=== PATIENT | male | born 1990 | race Caucasian/White ===

== ENCOUNTER 2017-11-30 19:41 | Observation (INO) | payer BC ==
[~2017-11-30] VITALS: Ht 172.7 cm; Wt 88.5 kg
[2017-11-30 20:11] LABS: BASOPHILS # (AUTO) 0.12 x10^3/uL (0-0.1); BASOPHILS % (AUTO) 1 % (0-1); EOSINOPHILS # (AUTO) 0.03 x10^3/uL (0-0.4); EOSINOPHILS % (AUTO) 0 % (1-7); LYMPHOCYTES # (AUTO) 3.17 x10^3/uL (1-3.4); LYMPHOCYTES % (AUTO) 24 % (22-44); MD NO; MEAN CORPUSCULAR HEMOGLOBIN 30.1 pg (27.5-34.5); MEAN CORPUSCULAR HGB CONC 34.2 g/dL (33.2-36.2); MEAN CORPUSCULAR VOLUME 88.2 fL (81-97); MEAN PLATELET VOLUME 7.6 fL (7.4-10.4); MONOCYTES # (AUTO) 0.84 x10^3/uL (0.2-0.8); MONOCYTES % (AUTO) 6 % (2-9); NEUTROPHILS # (AUTO) 9.22 x10^3/uL (1.8-6.8); NEUTROPHILS % (AUTO) 69 % (42-75); PLATELET COUNT 315 x10^3/uL (130-400); RED BLOOD COUNT 5.53 x10^6/uL (4.38-5.82); RED CELL DISTRIBUTION WIDTH 12.9 % (9.4-14.8)
[2017-11-30 20:29] LABS: ALBUMIN 4.5 g/dL (3.4-5.0); ANION GAP 9 mmol/L (5-15); CALCIUM 9.1 mg/dL (8.5-10.1); CHLORIDE 107 mmol/L (98-107)
[2017-11-30 20:30] LABS: CREATININE 0.97 mg/dL (0.7-1.3); SALICYLATE LEVEL < 1.7 mg/dL (2.8-20.0)
[2017-11-30 20:32] LABS: ACETAMINOPHEN < 2 mcg/mL (10-30)
[2017-11-30 20:59] LABS: AMPHETAMINE SCREEN, URINE Negative (Negative); BARBITURATE SCREEN, URINE Negative (Negative); BENZODIAZEPINE SCREEN, URINE Negative (Negative); CANNABINOID SCREEN, URINE Negative (Negative); COCAINE SCREEN, URINE Negative (Negative); METHADONE SCREEN, URINE Negative (Negative); OPIATE SCREEN, URINE Negative (Negative)
[2017-12-01] MEDS ORDERED: ACETAMINOPHEN 325 MG TABLET PO PRN (01:30)
[2017-12-01] MEDS ORDERED: DIPHENHYDRAMINE 50 MG CAPSULE PO PRN (01:30)
[2017-12-01] MEDS ORDERED: NICOTINE 14MG/24 HR PATCH.TD24 TD SCH (01:30)
[2017-12-01] MEDS ORDERED: NICOTINE 14MG/24 HR PATCH.TD24 ONE (01:36)
[2017-12-01] MEDS ORDERED: DIPHENHYDRAMINE 25 MG CAPSULE ONE (01:44)
[2017-12-01] MEDS ORDERED: DIPHENHYDRAMINE 50 MG CAPSULE ONE (01:51)
[2017-12-01] MEDS: LORazepam 1MG TABLET PO PRN ×2 (17:26→20:54)
[2017-12-01 17:35] VITALS: BP 157/90
[2017-12-01 20:31] VITALS: BP 131/74
[2017-12-02 07:34] VITALS: BP 120/81
[2017-12-02] MEDS: NICOTINE 14MG/24 HR PATCH.TD24 TD SCH (08:08)
[2017-12-02] MEDS: LORazepam 1MG TABLET PO PRN ×3 (08:18→15:38)
[2017-12-02] MEDS: ONDANSETRON ODT 4 MG PO PRN ×2 (09:37→15:41)
[2017-12-02 10:55] VITALS: BP 149/77
[2017-12-02 14:00] VITALS: BP 108/61
[2017-12-02 15:36] VITALS: BP 138/89
[2017-12-02 20:06] VITALS: BP 115/66
[2017-12-03 07:41] VITALS: BP 110/73
[2017-12-03] MEDS: NICOTINE 14MG/24 HR PATCH.TD24 TD SCH (08:57)
== END 2017-12-03 14:03 ==
LOC: ED 12-01 01:04 → SUATTDRO 12-01 01:09 → INTOOBSV 12-01 01:10 → EDIP 12-01 01:10 → 2N 12-01 17:21
PROVIDERS: ADMIT Family Medicine; ATTEND Family Medicine
DX: R45.851 Suicidal ideations (principal); F33.2 Major depressive disorder, recurrent severe without psychotic features; F10.10 Alcohol abuse, uncomplicated; J45.909 Unspecified asthma, uncomplicated; F17.200 Nicotine dependence, unspecified, uncomplicated
CPT/HCPCS: 36415; 80048; 80307; 80329; 82040; 85025; 99285; G0378; Q0162; G0480

== ENCOUNTER 2020-10-04 12:07 | Emergency (ER) | payer MEDICAID, OTHER ==
[~2020-10-04] VITALS: Ht 175.3 cm; Wt 70.0 kg
[2020-10-04] MEDS ORDERED: LIDOCAINE-MPF 1%, 5ML ONE (12:46)
--- NOTE | 2020-10-04 12:48 | NUR ---
ERP back to bedside for I&D.
[2020-10-04] MEDS ORDERED: CLINDAMYCIN PMX 900MG/50ML 50 ML IVPB ONE (13:00)
[2020-10-04] MEDS ORDERED: SODIUM CHLORIDE FLUSH 10ML SYR IVF ONE (13:00)
[2020-10-04] MEDS ORDERED: SODIUM CHLORIDE 0.9% 1,000 ML IV ONE (13:00)
[2020-10-04] MEDS ORDERED: LIDOCAINE-MPF 1%, 5ML INFIL ONE (13:00)
[2020-10-04 13:25] LABS: HCT (SEDRATE) 46.4 % (39.2-51.8)
[2020-10-04 13:28] LABS: BASOPHILS % (AUTO) 0 % (0-1); EOSINOPHILS % (AUTO) 0 % (1-7); LYMPHOCYTES % (AUTO) 23 % (22-44); MEAN CORPUSCULAR HEMOGLOBIN 29.8 pg (27.5-34.5); MEAN CORPUSCULAR HGB CONC 33.3 g/dL (33.2-36.2); MEAN PLATELET VOLUME 7.3 fL (7.4-10.4); MONOCYTES % (AUTO) 5 % (2-9); NEUTROPHILS % (AUTO) 71 % (42-75); PLATELET COUNT 325 x10^3/uL (130-400); RED BLOOD COUNT 5.19 x10^6/uL (4.38-5.82); RED CELL DISTRIBUTION WIDTH 12.8 % (9.4-14.8)
[2020-10-04] MEDS ORDERED: CLINDAMYCIN PMX 900MG/50ML 50 ML ONE (13:30)
[2020-10-04 13:34] LABS: ALANINE AMINOTRANSFERASE 40 U/L (12-78); ANION GAP 5 mmol/L (5-15); C-REACTIVE PROTEIN, QUANT 0.03 mg/dL (0.02-0.49); CALCIUM 9.3 mg/dL (8.5-10.1); CHLORIDE 104 mmol/L (98-107); CREATININE 1.01 mg/dL (0.7-1.3)
[2020-10-04 13:36] LABS: ALKALINE PHOSPHATASE 87 U/L (45-117); BILIRUBIN,TOTAL 0.5 mg/dL (0.2-1.0); TOTAL PROTEIN 7.9 g/dL (6.4-8.2)
--- NOTE | 2020-10-04 13:42 | NUR ---
This RN at bedside when BC were drawn. ABX hung after.
[2020-10-04 13:45] LABS: MD NO
[2020-10-04 14:49] VITALS: BP 102/61
== END 2020-10-04 14:55 | disposition home or self-care (01) ==
LOC: ED 14:49
DX: L03.011 Cellulitis of right finger (principal)
CPT/HCPCS: 26010; 36415; 73130; 80053; 85025; 85651; 86140; 87040; 96365; 99284; J7030